=== PATIENT | male | born 1985 | race Caucasian/White ===

== ENCOUNTER 2016-12-17 10:00 | Day surgery (SDC) | payer MEDICAID ==
[~2016-12-17] VITALS: Ht 180.3 cm; Wt 95.7 kg
[~2016-12-17 10:00] MED LIST: CYCLOBENZAPRINE10 MG PO; ZYLOPRIM300 MG PO
[2016-12-17 10:39] VITALS: BP 134/80; Ht 180.3 cm; Wt 95.7 kg
--- NOTE | 2016-12-24 10:20 | OP ---
PATIENT NAME: IRON CHAMORRO MEDICAL RECORD: [id number] :83 LOCATION:D.OPS ADMISSION DATE: SURGEON: ERIC ENRIQUEZ DPM DATE OF OPERATION: 12/17/2016 PREOPERATIVE DIAGNOSES: 1. Instability, left ankle, with rupture of the anterior talofibular ligament. 2. Capsulitis and spurring, left anterior ankle. POSTOPERATIVE DIAGNOSES: 1. Instability, left ankle, with rupture of the anterior talofibular ligament. 2. Capsulitis and spurring, left anterior ankle. PROCEDURES: 1. Ankle scope, left ankle. 2. ATF repair, left ankle. ANESTHESIA: Preoperative popliteal block per the anesthesia department as well as general anesthesia. HEMOSTASIS: Left thigh tourniquet at 350 mmHg. PREOPERATIVE DETAILS: The patient was taken to the OR, placed on the operating table in a supine position followed by induction of general anesthesia. The left extremity was then prepped and draped in the usual aseptic technique followed by exsanguination of extremity and inflation of tourniquet. A small stab incision was made over the anterolateral aspect of the left ankle overlying the lateral shoulder. A small stab incision was made and carried down bluntly through subcutaneous tissue. The joint capsule was punctured with a trocar and cannula and the camera was introduced. 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 There was noted to be a large spur on the medial aspect of the talar dome as well. A small stab incision was then made overlying the medial shoulder. A blunt trocar was used to puncture the joint capsule and the synovial shaver was placed in the medial portal. Extensive debridement was then performed of the hypertrophic capsular tissue as well as the chondromalacia. A bone debrider was then introduced medially and the spurring on the talar dome medial aspect was resected. The portals were switched, synovial shaver introduced laterally, the camera medially, and continued extensive debridement was performed of the hypertrophied capsular tissue as well as chondromalacia and inspection of the ligaments showed the AITF ligament to be intact. Upon initial inspection of the ATF ligament through the lateral portal with the camera, the ATF ligament was not intact, it was ruptured entirely. Upon inversion stress with the scope visualizing the ankle joint, there was no significant talar tilt indicating the CF ligament is intact. The camera and synovial shaver were then removed. PROCEDURE NUMBER #2: ATF ligament repair, left ankle. Utilizing an extension of the lateral portal incision moving distal and wrapping around just underneath the distal tibia, ____ type incision was used. The incision was deepened down through subcutaneous tissue being sure to avoid the intermediate dorsal cutaneous nerve. Dissection was carried down to the joint capsule, which was punctured and an incision was made in the joint capsule perpendicular to the coursing of the ATF ligament, the ATF ligament being totally ruptured. Once the cutdown was made, the joint was visualized, the lateral gutter was visualized. OPERATIVE REPORT [id number] IRON CHAMORRO Once again, inversion stress of the ankle showed no significant talar tilt whatsoever. The CF ligament was intact. At this time, the distal anterior aspect of the fibula and lateral neck of the talus were then prepped for the internal brace, which was placed both in the distal fibula as well as the lateral neck of the talus with the appropriate tension. Excellent range of motion was noted, restoring the integrity of the ATF ligament. Modified Brostrom was placed over the top of the internal brace, again allowing excellent range of motion as well as stability of the ankle joint. Once this was performed, the capsular tissue was repaired with 2-0 Vicryl, the subcutaneous tissue with 4-0 Rapide and the skin was closed with 4-0 Rapide in a subcuticular technique as well as the medial portal incision with 4-0 Rapide in a simple interrupted technique followed by Dermabond. Adaptic, 4 x 4 and Conform were used to dress the wounds followed by application of a modified Wray compression dressing. Tourniquet was deflated. POSTOPERATIVE DETAILS: The patient tolerated the procedure well and left the OR with vital signs stable and vascular status at preoperative levels. The patient was transported to recovery per anesthesia in stable condition. TRANSINT:[id number] Voice Confirmation ID: [id number] DOCUMENT ID: [id number] ERIC ENRIQUEZ DPM at 1020 CC: [id number] DICTATION DATE: 12/17/16 1335 DIRECTOR MEDICAL: 12/17/162012 [facility] 12/17/16 [place] [address]
== END 2016-12-17 15:40 | disposition home or self-care (01) ==
LOC: D.OPS 10:00 → D.PAN 12:45 → D.OPS 12:45
DX: M25.372 Other instability, left ankle (principal); M77.9 Enthesopathy, unspecified; M94.272 Chondromalacia, left ankle and joints of left foot; S93.492A Sprain of other ligament of left ankle, initial encounter

== ENCOUNTER 2016-12-27 22:05 | Emergency (ER) | payer MEDICAID ==
[2016-12-17 10:39] VITALS: BMI 29.5
== END 2016-12-27 23:27 | disposition home or self-care (01) ==
LOC: D.ER 22:05
DX: S93.602A Unspecified sprain of left foot, initial encounter (principal); X58.XXXA Exposure to other specified factors, initial encounter; Y93.89 Activity, other specified; Y92.89 Other specified places as the place of occurrence of the external cause; E87.6 Hypokalemia

== ENCOUNTER → 2017-06-18 09:39 | Outpatient (CLI) | payer MEDICAID ==
[2016-12-17 10:39] VITALS: BMI 29.5
== END | disposition home or self-care (01) ==
LOC: D.MRI 09:39
DX: M25.371 Other instability, right ankle (principal)

== ENCOUNTER → 2018-02-10 14:40 | Outpatient (CLI) | payer MEDICAID ==
[2016-12-17 10:39] VITALS: BMI 29.5
== END | disposition home or self-care (01) ==
LOC: D.MRI 12-14 08:00
DX: M25.552 Pain in left hip (principal)

== ENCOUNTER 2019-02-01 13:19 | Emergency (ER) | payer MEDICAID ==
[2019-02-01 13:29] VITALS: BMI 28.9
[2019-02-01 16:06] VITALS: BP 120/82
== END 2019-02-01 16:06 | disposition home or self-care (01) ==
LOC: D.ER 13:19
DX: S93.402A Sprain of unspecified ligament of left ankle, initial encounter (principal); X58.XXXA Exposure to other specified factors, initial encounter; Y93.89 Activity, other specified; Y92.89 Other specified places as the place of occurrence of the external cause; S46.811A Strain of other muscles, fascia and tendons at shoulder and upper arm level, right arm, initial encounter

== ENCOUNTER 2019-05-19 09:58 | Emergency (ER) | payer MEDICAID ==
[~2019-05-19] VITALS: Ht 180.3 cm; Wt 89.1 kg
[2019-05-19 10:03] VITALS: Ht 180.3 cm; Wt 89.1 kg
[2019-05-19 11:34] LABS: APPEARANCE CLEAR (CLEAR); BILIRUBIN NEGATIVE (NEGATIVE); COLOR YELLOW (YELLOW); GLUCOSE NEGATIVE (NEGATIVE); KETONE NEGATIVE (NEGATIVE); NITRITE NEGATIVE (NEGATIVE); PROTEIN NEGATIVE (NEGATIVE); UROBILINOGEN NORMAL (NORMAL)
[2019-05-19] MEDS ORDERED: BACLOFEN20 M1 PO (11:51)
[2019-05-19] MEDS ORDERED: VOLTAREN75 MG PO (11:51)
[2019-05-19] MEDS ORDERED: VISTARIL25 MG PO (11:51)
[2019-05-19 12:25] VITALS: BP 105/78
== END 2019-05-19 12:23 | disposition home or self-care (01) ==
LOC: D.ER 09:58
PROVIDERS: Family Medicine
DX: M54.5 Low back pain (principal)